=== PATIENT | male | born 1965 | race Caucasian/White ===

== ENCOUNTER 2018-05-22 16:48 | Emergency (ER) | payer OTHER ==
[2018-05-22 18:17] LABS: ABS Basophils 0.1 10^3/ul (0-0.2); ABS Eosinophils 0.1 10^3/ul (0-0.6); ABS Lymphocytes 1.9 10^3/ul (1.0-4.8); ABS Monocytes 0.4 10^3/ul (0-0.8); ABS Neutrophils 6.1 10^3/ul (1.5-7.7); ABS Nucleated RBC 0 10^3/ul; Eosinophil % 1.1 % (0-6); Hematocrit 40 % (42-52); Hemoglobin 14.2 g/dl (14.0-18.0); Lymphocyte % 21.9 % (25-47); Mean Corpuscular HGB Conc 36 g/dl (31-36); Mean Corpuscular Hemoglobin 32 pg (27-31); Mean Corpuscular Volume 89 fL (80-94); Nucleated Red Blood Cells % 0.1; Platelet Count 178 10^3/ul (150-450); Red Blood Count 4.49 10^6/ul (4.00-5.40); Red Cell Distribution Width 14 % (10.5-15); White Blood Count 8.6 10^3/ul (3.5-10.8)
--- NOTE | 2018-05-22 18:34 | ED ---
Syncope/Near Syncope - HPI Summary HPI Summary: Patient complains of waking up with lightheadedness today, worse with change in position and movement, and left shoulder pain radiating down arm, and bilateral knee ache starting yestersay, fatigue over the past week.. Denies trauma, CP, SOB, fever, cough, sore throat, abdominal pain, change in urine or BM, neck pain , back pain. Medical history sleep apnea, HDL. Denies prior cardiac or pulmonary disease history. Denies history of gout or arthritis. Denies any recent SOB or CP with exertion. Negative family cardiac history. Nonsmoker. Denies work recreational drug use. - History Of Current Complaint Chief Complaint: EDDizziness Time Seen by Provider: 05/22/18 17:34 Hx Obtained From: Patient, Family/Field Consultant Onset/Duration: Sudden Onset, Lasting Hours Timing: Constant Associated Head Trauma: No Aggravating Factor(s): Position Change, Exertion Alleviating Factor(s): Rest Associated Signs And Symptoms: Lightheadedness, Numbness, Pain - Risk Factors Cardiac Risk Factors: Elevated Lipids - Allergies/Home Medications Allergies/Adverse Reactions: Allergies Allergy/AdvReac Type Severity Reaction Status Date / Time No Known Allergies Allergy Verified 05/22/18 17:05 PMH/Surg Hx/FS Hx/Imm Hx Endocrine/Hematology History: Denies: Hx Anticoagulant Therapy, Hx Diabetes, Hx Thyroid Disease Cardiovascular History: Denies: Hx Hypertension, Hx Pacemaker/ICD Respiratory History: Denies: Hx Asthma, Hx Chronic Obstructive Pulmonary Disease (COPD) History: Denies: Hx Renal Disease Musculoskeletal History: Denies: Hx Scoliosis Neurological History: Reports: Other Neuro Impairments/Disorders - FX LSP SPINE AND LOWER TSP IN 1982 AND 1985 Denies: Hx Dementia, Hx Seizures Psychiatric History: Denies: Hx Substance Abuse - Surgical History Surgery Procedure, Year, and Place: wisdom teeth 2015, THUMB SURGERY Infectious Disease History: No Infectious Disease History: Denies: Hx Hepatitis, Hx Human Immunodeficiency Virus (HIV), Traveled Outside the [place] in Last 30 Days - Social History Alcohol Use: Daily Alcohol Amount: 3-4 BEERS/NIGHT Substance Use Type: Reports: None Smoking Status (MU): Never Smoked Tobacco Review of Systems Positive: Fatigue Eyes: Negative ENT: Negative Cardiovascular: Negative Respiratory: Negative Gastrointestinal: Negative Genitourinary: Negative Positive: Arthralgia Skin: Negative Neurological: Negative Psychological: Normal All Other Systems Reviewed And Are Negative: Yes Physical Exam - Summary Physical Exam Summary: No pain with palpation of bilateral knees or left shoulder and arm. No ecchymosis, erythema, extra warmth, swelling, deformity noted to bilateral knees or left shoulder and arm. No pain with movement of left shoulder, left elbow or left wrist. No pain with palpation of neck or back. No paraspinal tenderness. Full range of motion of neck without pain. Triage Information Reviewed: Yes Vital Signs On Initial Exam: Initial Vitals Temp Pulse Resp BP Pulse Ox 97.4 F 82 17 163/83 96 05/22/18 17:01 05/22/18 17:01 05/22/18 17:01 05/22/18 17:01 05/22/18 17:01 Vital Signs Reviewed: Yes Appearance: Positive: Well-Appearing Skin: Positive: Warm Head/Face: Positive: Normal Head/Face Inspection Eyes: Positive: Normal Neck: Positive: Supple Respiratory/Lung Sounds: Positive: Clear to Auscultation Cardiovascular: Positive: Normal Abdomen Description: Positive: Nontender Musculoskeletal: Positive: Normal Neurological: Positive: Normal Psychiatric: Positive: Normal AVPU Assessment: Alert - [place] Coma Scale Best Eye Response: 4 - Spontaneous Best Motor Response: 6 - Obeys Commands Best Verbal Response: 5 - Oriented Coma Scale Total: 15 Diagnostics - Vital Signs Vital Signs Temp Pulse Resp BP Pulse Ox 05/22/18 17:01 97.4 F 82 17 163/83 96 - Laboratory Lab Results: Lab Results 05/22/18 Range/Units 18:09 WBC 8.6 (3.5-10.8) 10^3/ul RBC 4.49 (4.00-5.40) 10^6/ul Hgb 14.2 (14.0-18.0) g/dl Hct 40 L (42-52) % MCV 89 (80-94) fL MCH 32 H (27-31) pg MCHC 36 (31-36) g/dl RDW 14 (10.5-15) % Plt Count 178 (150-450) 10^3/ul MPV 8.0 (7.4-10.4) um3 Neut % (Auto) 70.9 (38-83) % Lymph % (Auto) 21.9 L (25-47) % Crowley % (Auto) 5.2 (0-7) % Eos % (Auto) 1.1 (0-6) % Baso % (Auto) 0.9 (0-2) % Absolute Neuts (auto) 6.1 (1.5-7.7) 10^3/ul Absolute Lymphs (auto) 1.9 (1.0-4.8) 10^3/ul Absolute Monos (auto) 0.4 (0-0.8) 10^3/ul Absolute Eos (auto) 0.1 (0-0.6) 10^3/ul Absolute Basos (auto) 0.1 (0-0.2) 10^3/ul Absolute Nucleated RBC 0 10^3/ul Nucleated RBC % 0.1 Result Diagrams: 05/22/18 18:09 05/22/18 18:09 Lab Statement: Any lab studies that have been ordered have been reviewed, and results considered in the medical decision making process. - Radiology cxr Xray Interpretation: No Acute Changes Radiology Interpretation Completed By: Radiologist - EKG 1 Cardiac Rate: NL EKG Rhythm: Sinus Rhythm ST Segment: Normal Ectopy: None EKG Interpretation: nml EKG Course/Dx Course Of Treatment: Patient complains of waking up with lightheadedness today, worse with change in position and movement, and left shoulder pain radiating down arm, and bilateral knee ache starting yestersay, fatigue over the past week.. Denies trauma, CP, SOB, fever, cough, sore throat, abdominal pain, change in urine or BM, neck pain, back pain. Medical history sleep apnea, HDL. Denies prior cardiac or pulmonary disease history. Denies history of gout or arthritis. Denies any recent SOB or CP with exertion. Negative family cardiac history. Nonsmoker. Denies work recreational drug use. Physical exam:No pain with palpation of bilateral knees or left shoulder and arm. No ecchymosis, erythema, extra warmth, swelling, deformity noted to bilateral knees or left shoulder and arm. No pain with movement of left shoulder, left elbow or left wrist. No pain with palpation of neck or back. No paraspinal tenderness. Full range of motion of neck without pain. Vital signs within normal limits labs unremarkable. Imaging unremarkable. Ibuprofen and prednisone for anti- inflammation for likely arthralgia. Follow-up with primary care - Diagnoses Provider Diagnoses: Lightheadedness, Arthralgia Discharge - Sign-Out/Discharge Documenting (check all that apply): Patient Departure - Discharge Plan Condition: Stable Disposition: HOME Patient Education Materials: Lightheadedness (ED), Arthralgia (ED), Knee Pain ( ED), Shoulder Pain (ED) Referrals: Anita Grande MD [Primary Care Provider] - Additional Instructions: Follow-up with orthopedics. Return to the ED for any new or worsening symptoms - Billing Disposition and Condition Condition: STABLE Disposition: Home
[2018-05-22 18:35] LABS: EGFR Non-African American 53.7 (>60)
--- NOTE | 2018-05-22 18:54 | RAD ---
Indication: Left arm pain, lightheadedness. 2 views of the chest demonstrate no mediastinal shift. Heart is of normal size and configuration. Lungs are clear. IMPRESSION: No active cardiopulmonary disease is noted.
[2018-05-22] MEDS ORDERED: Ibuprofen TAB* 600 MG PO ONE (19:47)
[2018-05-22] MEDS ORDERED: predniSONE TAB* 20 MG PO ONE (19:48)
[2018-05-22 20:08] VITALS: BP 158/78
== END 2018-05-22 20:07 | disposition home or self-care (01) ==
LOC: ED 16:48
DX: R42 Dizziness and giddiness (principal); M25.512 Pain in left shoulder; M25.562 Pain in left knee; M25.561 Pain in right knee; R53.83 Other fatigue
CPT/HCPCS: 36415; 71046; 80053; 84484; 85025; 86140; 93005; 99282; A9270-GY; J7512

== ENCOUNTER 2018-10-02 10:33 | Emergency (ER) | payer OTHER ==
[2018-10-02 10:41] VITALS: BP 145/98
--- NOTE | 2018-10-02 10:59 | UC ---
Upper Extremity HPI - HPI Summary HPI Summary: Patient is a 52 year old gentleman, who present today to the urgent care with left shoulder pain and bilateral groin pain for past days. He reports left shoulder pain that has been going on for 2 months sometimes radiates down to the left arm. There is some associated neck stiffness but no numbness and tingling in his left arm. Every movement hurts, especially overhead activities. He also reports right groin pain that has been going on for 2 weeks and now his left groin also hurts. He does have low back pain for which she takes chiropractic treatments. He denies any specific injury or mechanism . Denies any fever, chills, cough, chest pain or shortness of breath . No diaphoresis. Denies any abdominal pain , nausea or vomiting , diarrhea or constipation. Denies any radicular symptoms, numbness , tingling , incontinence, saddle anesthesia , motor or sensory disturbance. He is heading to [place] for 3 weeks leaving on Wednesday. - History of Current Complaint Chief Complaint: UCBackPain Stated Complaint: SHOULDER/GROIN/BACK PAIN Time Seen by Provider: 10/02/18 10:55 Hx Obtained From: Patient Pain Intensity: 9 - Allergies/Home Medications Allergies/Adverse Reactions: Allergies Allergy/AdvReac Type Severity Reaction Status Date / Time No Known Allergies Allergy Verified 10/02/18 10:40 Home Medications: Home Medications Ibuprofen 400 10/02/18 [History] PMH/Surg Hx/FS Hx/Imm Hx - Additional Past Medical History Additional PMH: No significant past medical history . Leg length discrepancy Previously Healthy: Yes Other History Of: Negative For: Anticoagulant Therapy - Surgical History Surgical History: Yes Surgery Procedure, Year, and Place: wisdom teeth 2015, THUMB SURGERY - Social History Alcohol Use: Daily Alcohol Amount: 3-4 BEERS/NIGHT Substance Use Type: None Smoking Status (MU): Never Smoked Tobacco When Did the Patient Quit Smoking/Using Tobacco: occasional cigar Review of Systems All Other Systems Reviewed And Are Negative: Yes Constitutional: Positive: Negative Skin: Positive: Negative Eyes: Positive: Negative ENT: Positive: Negative Respiratory: Positive: Negative Cardiovascular: Positive: Negative Gastrointestinal: Positive: Negative Genitourinary: Positive: Negative Motor: Positive: Decreased ROM - left shoulder, bilateral hip and lumbar spine Musculoskeletal: Positive: Arthralgia - bilateral hip and left shoulder, Decreased ROM Neurological: Positive: Negative Psychological: Positive: Negative Is Patient Immunocompromised?: No Physical Exam - Summary Physical Exam Summary: Physical Exam: Const: Appears well. No signs of apparent distress present. Alert and oriented x 3. Musculo: Walks with a slightly antalgic Head/Face: Atraumatic, normocephalic on inspection. Eyes: EOMI and PERRLA in both eyes. Conjunctivae clear. No discharge noted ENT: Hearing normal, TM normal appearing bilaterally . Respiratory: Respirations are unlabored. Lungs clear to auscultation bilaterally, no wheezing , rhonchi or rales noted . CVS: Regular rate and Rhythm, S1S2 normal , no murmurs identified. Extremities: Peripheral circulation is grossly normal. Pulses 2+ Abdomen : Soft non tender , nondistended , Bowel sounds present . No guarding , rebound tenderness or rigidity noted. Spine: No loss of the normal lumbar lordosis or step-off. there is no midline tenderness, there is tenderness of L3 to L5 in paraspinal area. Stability: No obvious instability. Strength: Flexion, extension, left rotation, left lateral bending, right lateral bending and right rotation strength is intact. ROM: Limited and Painful ROM Special Tests: Straight leg raise is negative bilaterally. Hip: Insp/Palp: Normal to inspection and palpation. Strength: 5-/5 bilaterally. Normal muscle tone bilaterally. ROM: Bilateral hips: limited and painful ROM - internal and external rotation, positive KATHI test and FADIR test on RIGHT and left for groin pain. Special Tests: Gricelda's test is negative bilaterally. Skin: No scars, rashes, lesions or ecchymosis. Neuro: Sensation intact to light touch. Motor and sensory intact. Reflexes: Left DTR's are intact. Right DTR's are intact. Toes downgoing. Coordination normal. Distal pulses intact. Left Shoulder: Inspection and Palpation: No visible deformities noted. tenderness of the subacromial space. Glenohumeral joint: limited and painful ROM kimberlee in forward flexion and abduction. Tone: Normal muscle tone of the shoulder. Special tests: Empty can test positive for pain . Neer sign and Sung test positive ,cross arm test negative. Torres test is equivocal. Normal distal sensation and pulses. Triage Information Reviewed: Yes Vital Signs: Initial Vital Signs Temp 98.4 F 10/02/18 10:35 Pulse 112 10/02/18 10:35 Resp 18 10/02/18 10:35 BP 145/98 10/02/18 10:35 Pulse Ox 100 10/02/18 10:35 Vital Signs Reviewed: Yes Diagnostics - Radiology No standard instances Radiology Interpretation Completed By: Radiologist - X-ray of the bilateral hips :MILD BILATERAL OSTEOARTHRITIS. NO ACUTE OSSEOUS INJURY. IF SYMPTOMS PERSIST, RECOMMEND REPEAT IMAGING. X-ray of left shoulder: mild osteoarthritis of the left AC joint. NO ACUTE OSSEOUS INJURY. IF SYMPTOMS PERSIST, RECOMMEND REPEAT IMAGING. Upper Extremity Course/Dx - Course Course Of Treatment: During the visit today, we obtained x-ray of the bilateral hip and the left shoulder. Final report: X-ray of the bilateral hips :MILD BILATERAL OSTEOARTHRITIS. NO ACUTE OSSEOUS INJURY. IF SYMPTOMS PERSIST, RECOMMEND REPEAT IMAGING. X-ray of left shoulder: mild osteoarthritis of the left AC joint. NO ACUTE OSSEOUS INJURY. IF SYMPTOMS PERSIST, RECOMMEND REPEAT IMAGING. His symptoms appear to be consistent with left shoulder rotator cuff strain(subacromial pain syndrome) and osteoarthritis of bilateral hips. . We discussed the findings and further plan. We also discussed the option of a trial of a corticosteroid injection of the left shoulder today but we deferred it . Plan to strat PT and follow up with orthopedics. I will prescribe the medication to the pharmacy . Patient expressed understanding . - Differential Dx/Diagnosis Provider Diagnosis: Left shoulder pain, Rotator cuff strain, Bilateral hip pain, Bilateral primary osteoarthritis of hip Discharge - Sign-Out/Discharge Documenting (check all that apply): Patient Departure All imaging exams completed and their final reports reviewed: Yes - Discharge Plan Condition: Stable Disposition: HOME Prescriptions: Cyclobenzaprine TAB* [Flexeril 10 MG TAB*] 10 mg PO BID PRN 10 Days #20 tab PRN Reason: Spasms - Muscle Naproxen [Naproxen 500 mg tab] 500 mg PO BID PRN 15 Days #30 tablet.dr SOMMERS Reason: Pain Patient Education Materials: Rotator Cuff Injury (ED), Osteoarthritis (ED) Referrals: Nickolas Muse MD [Medical Doctor] - 2 Days Anita Grande MD [Primary Care Provider] - 1 Week Additional Instructions: Please start taking the medication as prescribed to the pharmacy . Start physical therapy Follow up with orthopedics in 2 to 3 days. He sees and would like to go there for follow up . Patients blood pressure slightly high in Urgent care today , plan follow up with PCP for better control Return to Urgent care / ER if symptoms get worse. - Billing Disposition and Condition Condition: STABLE Disposition: Home
== END 2018-10-02 12:18 | disposition home or self-care (01) ==
LOC: UCEAST 10:33
DX: S46.012A Strain of muscle(s) and tendon(s) of the rotator cuff of left shoulder, initial encounter (principal); M25.512 Pain in left shoulder; M25.551 Pain in right hip; M25.552 Pain in left hip; M16.0 Bilateral primary osteoarthritis of hip; X58.XXXA Exposure to other specified factors, initial encounter; Y92.9 Unspecified place or not applicable
CPT/HCPCS: 73523; 99212; G0463